=== PATIENT | male | born 1950 ===

== ENCOUNTER 2017-01-27 07:07 | Day surgery (SDC) | payer MEDICARE ==
[2017-01-27 07:31] VITALS: BMI 25.0
[2017-01-27] MEDS ORDERED: Propofol 10 mg/ml Inj (20 ML) ONE (09:08)
[2017-01-27] MEDS ORDERED: Lidocaine Hydrochloride 5 ML INJ ONE (09:09)
[2017-01-27] MEDS ORDERED: Lactated Ringer's 1,000 ML IV SCH (09:15)
[2017-01-27 10:01] VITALS: O2SAT 100
[2017-01-27 10:58] VITALS: BP 140/87; PULSE 61; RESP 13
== END 2017-01-27 10:56 | disposition home or self-care (01) ==
LOC: C.ENDO 07:07
PROVIDERS: ATTEND Internal Medicine Gastroenterology
DX: D12.2 Benign neoplasm of ascending colon (principal); K57.90 Diverticulosis of intestine, part unspecified, without perforation or abscess without bleeding; K64.8 Other hemorrhoids
CPT/HCPCS: 45380; 82948; 88305; J2704; J7120